=== PATIENT | female | born 1955 | race Caucasian/White ===

== ENCOUNTER 2017-08-31 00:31 | Inpatient (IN) | payer MEDICARE ==
[~2017-08-31] VITALS: Ht 162.6 cm; Wt 53.5 kg
--- NOTE | 2017-08-31 00:31 | NUR ---
Dr. Simon at bedside for MSE.
--- NOTE | 2017-08-31 00:56 | NUR ---
Pt out of ER for Xray and CT.
--- NOTE | 2017-08-31 01:48 | NUR ---
Passed report to Lorie SIMON MHU.
[2017-08-31] MEDS ORDERED: TEMAZEPAM 7.5 MG CAPSULE PO PRN (02:15)
[2017-08-31] MEDS ORDERED: MAGNESIUM HYDROXIDE 30 ML LIQUID UDC PO PRN (02:15)
[2017-08-31] MEDS ORDERED: MAG HYDROX/AL HYDROX/SIMETH 30 ML LIQUID UDC PO PRN (02:15)
[2017-08-31] MEDS ORDERED: ACETAMINOPHEN 325 MG TABLET PO PRN (02:15)
[2017-08-31 02:50] VITALS: BP 102/57
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
[2017-08-31] MEDS ORDERED: CLONAZEPAM 0.5 MG TABLET PO PRN (03:45)
--- NOTE | 2017-08-31 06:50 | NUR ---
PATIENT HAS BEEN ASLEEP SINCE SHE WAS ADMITTED INTO THE UNIT. (APPROX 6 HRS) UNABLE TO SIGN ADMISSION PAPERS OR PROVIDE AND INFORMATION OR HISTORY. WILL CONTINUE TO MONITOR.
[2017-08-31 07:30] VITALS: BP 128/57
[2017-08-31] MEDS ORDERED: risperiDONE 1 MG/ML UDC GT SCH (10:00)
[2017-08-31] MEDS: DIVALPROEX SPRINKLE 125 MG CAP.SPRINK PO SCH ×2 (12:20→20:43)
[2017-08-31] MEDS: risperiDONE 1 MG TABLET PO SCH ×2 (12:21→20:43)
[2017-08-31] MEDS: BENZTROPINE MESYLATE 0.5 MG TABLET PO SCH ×2 (12:21→17:53)
[2017-08-31 15:34] VITALS: BP 93/52
[2017-08-31 22:05] VITALS: BP 112/58
--- NOTE | 2017-09-01 00:55 | NUR ---
GPS/NSG Vital Signs entered at 2200 under short form taken originally at 1999.
--- NOTE | 2017-09-01 06:06 | NUR ---
GPS: REMAIN CALM AND COOPERATIVE WITH MEDICATIONS AND CARE. SLEPT 8 HRS THROUGH THE NIGHT. NO AGITATION NOTED AT THIS TIME. CONTINUE PLAN OF CARE.
[2017-09-01 06:48] LABS: BASOPHILS % (AUTO) 0.9 % (0.0-2.0); EOSINOPHILS # (AUTO) 0.1 K/uL (0.0-0.7); EOSINOPHILS % (AUTO) 1.5 % (0.0-7.0); HEMATOCRIT 37.7 % (31.2-41.9); HEMOGLOBIN 12.9 g/dL (10.9-14.3); LYMPHOCYTES % (AUTO) 33.7 % (20.5-51.5); MEAN CORPUSCULAR HEMOGLOBIN 30.7 uug (24.7-32.8); MEAN CORPUSCULAR HGB CONC 34 g/dL (32.3-35.6); MEAN CORPUSCULAR VOLUME 89.5 fL (75.5-95.3); MONOCYTES # (AUTO) 0.4 K/uL (2.0-10.0); MONOCYTES % (AUTO) 6.1 % (0.0-11.0); NEUTROPHILS # (AUTO) 3.4 K/uL (1.8-8.9); NEUTROPHILS % (AUTO) 57.8 % (38.5-71.5); PLATELET COUNT (AUTO) 307 K/uL (179-408); RED BLOOD CELL COUNT(AUTO) 4.21 MIL/uL (3.63-4.92); WHITE BLOOD COUNT (AUTO) 5.9 K/uL (3.8-11.8)
[2017-09-01 07:06] LABS: BILIRUBIN,TOTAL 0.2 mg/dL (0.2-1.0); CREATININE 0.7 mg/dL (0.6-1.3); MAGNESIUM 2.1 mg/dL (1.8-2.4); PHOSPHOROUS 4.6 mg/dL (2.5-4.9); POTASSIUM 4.7 mmol/L (3.5-5.1); TOTAL PROTEIN, SERUM 6.5 g/dL (6.4-8.2)
[2017-09-01 07:19] LABS: THYROID STIMULATING HORMONE 1.251 mIU/mL (0.358-3.740)
--- NOTE | 2017-09-01 07:30 | NUR ---
PT IS SLEEPING IN HER BED COMFORTABLY. NO S/S OF RESPIRATORY DISTRESS NOTED. ALL SAFETY NEEDS ARE MET. NO PAIN NOTED. WILL CONTINUE TO MONITOR.
[2017-09-01 07:48] VITALS: BP 97/63
[2017-09-01] MEDS: risperiDONE 1 MG TABLET PO SCH ×2 (08:42→20:32)
[2017-09-01] MEDS: DIVALPROEX SPRINKLE 125 MG CAP.SPRINK PO SCH ×2 (08:42→20:32)
[2017-09-01] MEDS: BENZTROPINE MESYLATE 0.5 MG TABLET PO SCH ×2 (08:42→17:18)
--- NOTE | 2017-09-01 10:19 | NUR ---
GPS.RN- PATIENT NOTIFIED OF 14DAY HOLD, QUESTIONS AND CONCERNS ADDRESSED, COURT NOTIFIED.
--- NOTE | 2017-09-01 14:17 | NUR ---
Initial DC Plan: Patient is currently homeless. Patient was unable to state where she would like to go upon discharge due to her disorganized mental status. SW will follow up with MD and patient to discuss most appropriate discharge plans. SW will form a safe and proper discharge.
[2017-09-01 15:07] LABS: *BILIRUBIN,URIN NEGATIVE (NEGATIVE); *BLOOD, URINE NEGATIVE (NEGATIVE); *CLARITY,URINE CLEAR (CLEAR); *COLOR,URINE YELLOW (YELLOW); *KETONES,URINE TRACE (NEGATIVE); *PROTEIN,URINE NEGATIVE (NEGATIVE); *UROBILINOGEN,URINE 0.2 E.U./dl (NORMAL); LEUKOCYTE ESTERASE ,URINE NEGATIVE (NEGATIVE); NITRITE, URINE NEGATIVE (NEGATIVE); PH,URINE 7.5 (5.0-8.0); UGLUCOSE NEGATIVE (NEGATIVE)
[2017-09-01 15:23] LABS: BACTERIA,URINE NONE SEEN /HPF (NONE SEEN); RBC,URINE 0-3 /HPF (0-3); SQUAMOUS EPITHELIAL CELL,UR FEW /HPF (NONE SEEN); WBC,URINE 0-3 /HPF (0-3)
[2017-09-01 17:01] VITALS: BP 107/71
[2017-09-01 20:20] VITALS: BP 110/68
--- NOTE | 2017-09-02 06:32 | NUR ---
Pt SLEPT WELL THROUGHOUT THE NIGHT, NO DISTRESS NOTED THIS MORNING, IN STABLE CONDITION. Pt CONTINUES TO SLEEP, RESTING COMFORTABLY.
[2017-09-02 07:30] VITALS: BP 107/67
[2017-09-02] MEDS: DIVALPROEX SPRINKLE 125 MG CAP.SPRINK PO SCH ×2 (09:09→20:39)
[2017-09-02] MEDS: risperiDONE 1 MG TABLET PO SCH ×2 (09:09→20:40)
[2017-09-02] MEDS: BENZTROPINE MESYLATE 0.5 MG TABLET PO SCH ×2 (09:10→17:28)
--- NOTE | 2017-09-02 09:15 | NUR ---
Pt report received. Pt assessed, no acute distress or SOB noted. Pt compliant with all routine medications. Pt cooperative with care, responds appropriately, even with flight of ideas evident. Interacts well with roommate. Pt able to make CFS. All comfort and safety needs met. Will continue to monitor.
[2017-09-02 15:31] VITALS: BP 100/70
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
[2017-09-02 20:29] VITALS: BP 106/66
[2017-09-03 07:30] VITALS: BP 93/63
[2017-09-03] MEDS: DIVALPROEX SPRINKLE 125 MG CAP.SPRINK PO SCH ×2 (08:52→20:05)
[2017-09-03] MEDS: risperiDONE 1 MG TABLET PO SCH ×2 (08:52→20:05)
[2017-09-03] MEDS: BENZTROPINE MESYLATE 0.5 MG TABLET PO SCH ×2 (08:52→16:14)
[2017-09-03 15:35] VITALS: BP 90/57
[2017-09-03 20:17] VITALS: BP 96/61
[2017-09-04 07:30] VITALS: BP 90/62
[2017-09-04] MEDS: risperiDONE 1 MG TABLET PO SCH ×2 (08:55→20:16)
[2017-09-04] MEDS: BENZTROPINE MESYLATE 0.5 MG TABLET PO SCH ×2 (08:55→17:59)
[2017-09-04] MEDS: DIVALPROEX SPRINKLE 125 MG CAP.SPRINK PO SCH ×2 (08:56→20:16)
[2017-09-04 15:32] VITALS: BP 92/57
[2017-09-04 20:08] VITALS: BP 103/55
[2017-09-05 07:30] VITALS: BP 107/62
[2017-09-05] MEDS: BENZTROPINE MESYLATE 0.5 MG TABLET PO SCH ×2 (08:07→16:22)
[2017-09-05] MEDS: risperiDONE 1 MG TABLET PO SCH ×2 (08:07→20:41)
[2017-09-05] MEDS: DIVALPROEX SPRINKLE 125 MG CAP.SPRINK PO SCH ×2 (08:07→20:41)
[2017-09-05 15:32] VITALS: BP 92/66
--- NOTE | 2017-09-05 19:45 | NUR ---
RECEIVED PATIENT IN HER ROOM. SHE IN NOTED A/O X 2. PLEASANT AND COOPERATIVE. SHE IS ABLE TO AMBULATE WITH STEADY GAIT AND ABLE TO MAKE HER NEEDS KNOWN. SHE IS NOTED CALM PLEASANT AND COOPERATIVE. WITHDRAWN MAINLY TO HER ROOM, HYPERVERBAL. FAIR INSIGHT NOTED. EMPHASIZED SAFETY, BED AT LOWEST POSITION WITH WHEELS LOCKED AND SIDE RAILS UP X 2. FREQUENT HEAD CHECKS. WILL CONTINUE TO MONITOR CLOSELY.
[2017-09-05 21:00] VITALS: BP 90/56
--- NOTE | 2017-09-06 06:26 | NUR ---
PATIENT SLEPT FOR APPROX 9 HRS THROUGH THE NIGHT. SHE CONTINUE COMPLIANT WITH MEDICATION DIET AND PLAN OF CARE.
[2017-09-06 08:00] VITALS: BP 107/68
[2017-09-06] MEDS: risperiDONE 1 MG TABLET PO SCH (08:44)
[2017-09-06] MEDS: BENZTROPINE MESYLATE 0.5 MG TABLET PO SCH ×2 (08:45→17:01)
[2017-09-06] MEDS: DIVALPROEX SPRINKLE 125 MG CAP.SPRINK PO SCH ×2 (08:45→20:49)
--- NOTE | 2017-09-06 11:11 | NUR ---
Discharge Planning Note: SW attempted to discuss discharge planning with patient, however, patient was too disorganized and tangential to provide meaningful answers to questions. Patient is unable to contract for safety at this time or provide a viable discharge plan. Patient has been accepted at [facility] [[phone]]. SW will continue to follow up with patient to discuss discharge planning.
[2017-09-06 16:00] VITALS: BP 90/62
--- NOTE | 2017-09-06 19:50 | NUR ---
RECEIVED PATIENT IN HER ROOM. SHE IN NOTED A/O X 2. PLEASANT AND COOPERATIVE. SHE IS ABLE TO AMBULATE WITH STEADY GAIT AND ABLE TO MAKE HER NEEDS KNOWN. SHE IS NOTED CALM PLEASANT AND COOPERATIVE. WITHDRAWN MAINLY TO HER ROOM, HYPERVERBAL UPON INTERVIEW. FAIR INSIGHT NOTED. EMPHASIZED SAFETY, BED AT LOWEST POSITION WITH WHEELS LOCKED AND SIDE RAILS UP X 2. FREQUENT HEAD CHECKS. WILL CONTINUE TO MONITOR CLOSELY.
[2017-09-06] MEDS: risperiDONE 2 MG TABLET PO SCH (20:48)
--- NOTE | 2017-09-06 22:13 | NUR ---
PATIENT CAME OUT OF HER ROOM, UPSET, AND YELLING, SHE STATED, "WHY THERE IS SO MUCH NOISE IN MY ROOM?" "I CAN'T SLEEP, IS THERE ANOTHER ROOM THAT I CAN SLEEP IN?" "YOU ALL DON'T HAVE RESPECT FOR ME". ATTEMPTED TO REDIRECTED PT AND EXPLAINED THAT SHE (EVS STAFF) WAS DONE CLEANING HER ROOM. HOWEVER, SHE WENT INTO THE DAY ROOM. WILL CONTINUE TO MONITOR.
--- NOTE | 2017-09-06 23:50 | NUR ---
PATIENT WHEN BACK TO HER BED, APPEARS CALM AT THIS TIME. WILL CONTINUE TO MONITOR.
[2017-09-07 08:00] VITALS: BP 102/55
[2017-09-07] MEDS: BENZTROPINE MESYLATE 0.5 MG TABLET PO SCH ×2 (08:28→17:36)
[2017-09-07] MEDS: DIVALPROEX SPRINKLE 125 MG CAP.SPRINK PO SCH ×2 (08:28→20:22)
[2017-09-07] MEDS: risperiDONE 1 MG TABLET PO SCH (08:29)
[2017-09-07 16:00] VITALS: BP 92/52
[2017-09-07] MEDS: risperiDONE 2 MG TABLET PO SCH (20:22)
[2017-09-07 20:32] VITALS: BP 103/57
--- NOTE | 2017-09-08 05:43 | NUR ---
NSG/GPS Patient first observed awake in room, alert oriented times two, patient however is disorganized and tangental, unable to engage in a coherent conversation, Compliant with medication, asking questions related to medication. Patient slept a total of eight hours. Continue to follow plan of care including monitor as well as provide a safe environment.
[2017-09-08 07:30] VITALS: BP 97/56
[2017-09-08] MEDS: risperiDONE 1 MG TABLET PO SCH (08:21)
[2017-09-08] MEDS: BENZTROPINE MESYLATE 0.5 MG TABLET PO SCH ×2 (08:21→17:22)
[2017-09-08] MEDS: DIVALPROEX SPRINKLE 125 MG CAP.SPRINK PO SCH ×2 (08:21→20:10)
[2017-09-08 15:36] VITALS: BP 119/60
[2017-09-08] MEDS: risperiDONE 2 MG TABLET PO SCH (20:10)
[2017-09-08 21:12] VITALS: BP 107/63
[2017-09-09 07:30] VITALS: BP 103/50
[2017-09-09] MEDS: risperiDONE 1 MG TABLET PO SCH (08:42)
[2017-09-09] MEDS: BENZTROPINE MESYLATE 0.5 MG TABLET PO SCH ×2 (08:42→16:47)
[2017-09-09] MEDS: DIVALPROEX SPRINKLE 125 MG CAP.SPRINK PO SCH ×3 (08:42→16:47)
[2017-09-09 16:56] VITALS: BP 97/65
[2017-09-09 20:00] VITALS: BP 99/58
[2017-09-09] MEDS: risperiDONE 2 MG TABLET PO SCH (20:48)
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
[2017-09-10 07:30] VITALS: BP 93/62
[2017-09-10] MEDS: risperiDONE 1 MG TABLET PO SCH (08:17)
[2017-09-10] MEDS: DIVALPROEX SPRINKLE 125 MG CAP.SPRINK PO SCH ×3 (08:17→16:49)
[2017-09-10] MEDS: BENZTROPINE MESYLATE 0.5 MG TABLET PO SCH ×2 (08:17→16:49)
[2017-09-10 15:18] VITALS: BP 104/55
--- NOTE | 2017-09-10 17:32 | NUR ---
Pt without significant change in condition during shift. Pt is compliant with medications and plan of care. Noted attending group activities in the dayroom and interacting with peers and recreational therapist. Pt noted with pleasant attitude. No yelling or screaming at other patients. Able to provide self-care with minimal prompting. Will continue to monitor.
[2017-09-10 20:00] VITALS: BP 90/54
[2017-09-10] MEDS: risperiDONE 2 MG TABLET PO SCH (21:00)
--- NOTE | 2017-09-10 21:27 | NUR ---
DECREASED BLOOD PRESSURE THIS EVENING OF 90/54, NURSE GAVE A SANDWICH, JUICE, AND WATER TO Pt, ELEVATED FEET ON A CHAIR. RECHECKED BLOOD PRESSURE AFTER 1 HOUR OF FINISHING SNACKS, BLOOD PRESSURE WAS 94/56. Pt IS ASYMPTOMATIC, SKIN COLOR WNL, OTHER VITAL SIGNS ARE WNL, Pt DENIES PAIN, DISCOMFORT, DIZZINESS, LIGHTHEADEDNESS, AND STATED, "I FEEL FINE." WILL HOLD SCHEDULED RISPERDAL 2MG PO THIS EVENING. WILL CONTINUE TO MONITOR Pt CLOSELY FOR SAFETY.
--- NOTE | 2017-09-11 04:00 | NUR ---
Pt WOKE UP AND GOT OUT OF ROOM TO GO TO ACTIVITY ROOM. WAS NOTED RESTLESS SHE WALKED DOWN THE HALLWAY, INFORMED BY NURSE THAT THE ACTIVITY ROOM IS CLOSED SINCE IT IS TOO EARLY. OFFERED ANTI-ANXIETY MEDICATION BY NURSE BUT Pt REFUSED AND STATED, "NO, THANK YOU. I'LL JUST GO BACK TO BED AND TRY TO SLEEP." Pt WAS PLEASANT AND COOPERATIVE, NO AGGRESSIVE BEHAVIOR NOTED. Pt NOW BACK IN BED SLEEPING. NO OTHER INTERVENTIONS NEEDED.
[2017-09-11 07:30] VITALS: BP 96/60
[2017-09-11] MEDS: DIVALPROEX SPRINKLE 125 MG CAP.SPRINK PO SCH ×2 (08:38→13:15)
[2017-09-11] MEDS: BENZTROPINE MESYLATE 0.5 MG TABLET PO SCH (08:38)
[2017-09-11] MEDS: risperiDONE 1 MG TABLET PO SCH (08:38)
--- NOTE | 2017-09-11 11:10 | NUR ---
Discharge Note: Patient will be discharged to [facility] [[address], [place] [address]; [phone]] via ambulance. Spoke with Lc at the facility who states they are ready to accept the patient today. Patient is alert and oriented x3. Patient is aware and agreeable with discharge plans. Patient will follow-up at the facility with Dr. Rai (Administrative Executive) and Dr. Painting (Psychiatrist).
--- NOTE | 2017-09-11 14:30 | NUR ---
GPS: Nursing Notes: Discharge Notes: Patient is awake and responding to her name, cooperative with nursing care, compliant with her medications, following staff directions, denies any SI/HI, denies any AH/VH, denies any pain or discomfort, denies any SOB, discharge to [facility] at [address] [place] [address] . Patient will follow-up at the facility with Dr. Rai (Auto Transmission Technician) and Dr. Painting (Psychiatrist) for aftercare at the facility, report given to Jose Alfredo RN pharmaceutical compounding supervisor, took all her belongings with her, transported to facility via ambulance.
== END 2017-09-11 14:30 | DRG 885 ==
LOC: ER 00:37 → GPS 01:50
PROVIDERS: ADMIT Psychiatry & Neurology Psychiatry; ATTEND Nurse Practitioner Acute Care
DX: F25.9 Schizoaffective disorder, unspecified (principal); E44.0 Moderate protein-calorie malnutrition; Z59.0 Homelessness; M54.12 Radiculopathy, cervical region; F43.10 Post-traumatic stress disorder, unspecified; Z68.20 Body mass index [BMI] 20.0-20.9, adult
CPT/HCPCS: 36415; 70450; 71045; 80164; 83735; 84100; 84443; 85025; 87086; 93005; A4663

== ENCOUNTER 2018-01-30 20:08 | Inpatient (IN) | payer MEDICARE ==
[~2018-01-30] VITALS: Ht 162.6 cm; Wt 56.2 kg
[2018-01-30 21:09] VITALS: BP 128/81
[2018-01-30] MEDS ORDERED: MAG HYDROX/AL HYDROX/SIMETH 30 ML LIQUID UDC PO PRN (21:15)
[2018-01-30] MEDS ORDERED: MAGNESIUM HYDROXIDE 30 ML LIQUID UDC PO PRN (21:15)
[2018-01-30] MEDS ORDERED: ACETAMINOPHEN 325 MG TABLET PO PRN (21:15)
[2018-01-31 07:30] VITALS: BP 128/75
[2018-01-31 16:05] VITALS: BP 124/71
[2018-01-31] MEDS: DIVALPROEX 250 MG TABLET.DR PO SCH (17:59)
[2018-01-31 19:30] VITALS: BP 117/82
[2018-01-31] MEDS: risperiDONE 1 MG TABLET PO SCH (21:00)
[2018-02-01 07:18] LABS: BASOPHILS % (AUTO) 0.5 % (0.0-2.0); EOSINOPHILS # (AUTO) 0.1 K/uL (0.0-0.7); EOSINOPHILS % (AUTO) 0.9 % (0.0-7.0); HEMATOCRIT 39.1 % (31.2-41.9); HEMOGLOBIN 13.2 g/dL (10.9-14.3); LYMPHOCYTES # (AUTO) 1.8 K/uL (20.0-40.0); LYMPHOCYTES % (AUTO) 23.6 % (20.5-51.5); MEAN CORPUSCULAR HEMOGLOBIN 30.3 uug (24.7-32.8); MEAN CORPUSCULAR HGB CONC 34 g/dL (32.3-35.6); MEAN CORPUSCULAR VOLUME 89.6 fL (75.5-95.3); MONOCYTES # (AUTO) 0.6 K/uL (2.0-10.0); MONOCYTES % (AUTO) 7.5 % (0.0-11.0); NEUTROPHILS # (AUTO) 5.1 K/uL (1.8-8.9); NEUTROPHILS % (AUTO) 67.5 % (38.5-71.5); PLATELET COUNT (AUTO) 269 K/uL (179-408); RED BLOOD CELL COUNT(AUTO) 4.37 MIL/uL (3.63-4.92); WHITE BLOOD COUNT (AUTO) 7.6 K/uL (3.8-11.8)
[2018-02-01 07:30] VITALS: BP 118/72
[2018-02-01 07:49] LABS: BILIRUBIN,TOTAL 0.3 mg/dL (0.2-1.0); CREATININE 0.6 mg/dL (0.6-1.3); MAGNESIUM 1.9 mg/dL (1.8-2.4); PHOSPHOROUS 5.1 mg/dL (2.5-4.9); POTASSIUM 4.3 mmol/L (3.5-5.1); TOTAL PROTEIN, SERUM 6.7 g/dL (6.4-8.2)
[2018-02-01 07:55] LABS: THYROID STIMULATING HORMONE 1.251 mIU/mL (0.358-3.740)
[2018-02-01] MEDS: DIVALPROEX 250 MG TABLET.DR PO SCH ×3 (08:09→16:52)
[2018-02-01] MEDS: risperiDONE 1 MG TABLET PO SCH ×2 (08:09→21:02)
[2018-02-01 16:11] VITALS: BP 117/71
[2018-02-01 20:59] VITALS: BP 118/63
[2018-02-01] MEDS: ZOLPIDEM 5 MG TABLET PO PRN (22:28)
[2018-02-02 07:30] VITALS: BP 132/65
[2018-02-02] MEDS: DIVALPROEX 250 MG TABLET.DR PO SCH ×3 (08:10→16:13)
[2018-02-02] MEDS: risperiDONE 1 MG TABLET PO SCH ×2 (08:10→20:10)
[2018-02-02] MEDS: LORAZEPAM 0.5 MG TABLET PO PRN (11:11)
[2018-02-02 16:00] VITALS: BP 102/66
[2018-02-02 20:40] VITALS: BP 107/61
[2018-02-03 07:30] VITALS: BP 110/77
[2018-02-03] MEDS: risperiDONE 1 MG TABLET PO SCH ×2 (08:33→20:43)
[2018-02-03] MEDS: DIVALPROEX 250 MG TABLET.DR PO SCH ×2 (08:33→12:43)
[2018-02-03 16:14] VITALS: BP 94/60
[2018-02-03] MEDS: LORAZEPAM 0.5 MG TABLET PO PRN (16:57)
[2018-02-03] MEDS ORDERED: DIVALPROEX 250 MG TABLET.DR PO SCH (17:00)
[2018-02-03 20:50] VITALS: BP 107/66
[2018-02-04 07:30] VITALS: BP 121/67
[2018-02-04] MEDS: risperiDONE 1 MG TABLET PO SCH ×2 (09:09→20:24)
[2018-02-04 14:50] LABS: *BILIRUBIN,URIN NEGATIVE (NEGATIVE); *BLOOD, URINE NEGATIVE (NEGATIVE); *CLARITY,URINE SLIGHTLY CLOUDY (CLEAR); *COLOR,URINE YELLOW (YELLOW); *KETONES,URINE NEGATIVE (NEGATIVE); *PROTEIN,URINE NEGATIVE (NEGATIVE); *UROBILINOGEN,URINE 0.2 E.U./dl (NORMAL); LEUKOCYTE ESTERASE ,URINE NEGATIVE (NEGATIVE); NITRITE, URINE NEGATIVE (NEGATIVE); PH,URINE 6.5 (5.0-8.0); UGLUCOSE NEGATIVE (NEGATIVE)
[2018-02-04 14:56] LABS: BACTERIA,URINE NONE SEEN /HPF (NONE SEEN); RBC,URINE 0-3 /HPF (0-3); SQUAMOUS EPITHELIAL CELL,UR FEW /HPF (NONE SEEN); WBC,URINE 0-3 /HPF (0-3)
[2018-02-04 16:00] VITALS: BP 103/98
[2018-02-04] MEDS: DIVALPROEX 500 MG TABLET.DR PO SCH (17:05)
[2018-02-04 20:00] VITALS: BP 108/67
[2018-02-05 08:00] VITALS: BP 108/75
[2018-02-05] MEDS: risperiDONE 1 MG TABLET PO SCH ×2 (09:57→20:10)
[2018-02-05] MEDS: DIVALPROEX 500 MG TABLET.DR PO SCH ×3 (09:57→20:10)
[2018-02-05 16:38] VITALS: BP 107/56
[2018-02-05 20:00] VITALS: BP 100/62
[2018-02-06 07:30] VITALS: BP 92/63
[2018-02-06] MEDS: DIVALPROEX 500 MG TABLET.DR PO SCH ×2 (08:29→20:44)
[2018-02-06] MEDS: risperiDONE 1 MG TABLET PO SCH ×2 (08:30→20:44)
[2018-02-06] MEDS: LORAZEPAM 0.5 MG TABLET PO PRN (13:56)
[2018-02-06 16:36] VITALS: BP 98/59
[2018-02-06 20:00] VITALS: BP 111/64
[2018-02-06 20:28] VITALS: BP 111/64
[2018-02-07 07:39] LABS: BASOPHILS % (AUTO) 0.6 % (0.0-2.0); EOSINOPHILS # (AUTO) 0.1 K/uL (0.0-0.7); EOSINOPHILS % (AUTO) 1.7 % (0.0-7.0); HEMATOCRIT 38.6 % (31.2-41.9); HEMOGLOBIN 13.2 g/dL (10.9-14.3); LYMPHOCYTES # (AUTO) 1.6 K/uL (20.0-40.0); LYMPHOCYTES % (AUTO) 29.5 % (20.5-51.5); MEAN CORPUSCULAR HEMOGLOBIN 30.5 uug (24.7-32.8); MEAN CORPUSCULAR HGB CONC 34 g/dL (32.3-35.6); MEAN CORPUSCULAR VOLUME 89.3 fL (75.5-95.3); MONOCYTES # (AUTO) 0.4 K/uL (2.0-10.0); MONOCYTES % (AUTO) 7.8 % (0.0-11.0); NEUTROPHILS # (AUTO) 3.2 K/uL (1.8-8.9); NEUTROPHILS % (AUTO) 60.4 % (38.5-71.5); PLATELET COUNT (AUTO) 293 K/uL (179-408); RED BLOOD CELL COUNT(AUTO) 4.32 MIL/uL (3.63-4.92); WHITE BLOOD COUNT (AUTO) 5.4 K/uL (3.8-11.8)
[2018-02-07 08:00] LABS: BILIRUBIN,TOTAL 0.2 mg/dL (0.2-1.0); CREATININE 0.6 mg/dL (0.6-1.3); MAGNESIUM 2.1 mg/dL (1.8-2.4); PHOSPHOROUS 4.5 mg/dL (2.5-4.9); POTASSIUM 5.2 mmol/L (3.5-5.1); TOTAL PROTEIN, SERUM 6.9 g/dL (6.4-8.2)
[2018-02-07 08:52] VITALS: BP 110/70
[2018-02-07 08:53] VITALS: BP 105/66
[2018-02-07] MEDS: risperiDONE 1 MG TABLET PO SCH ×3 (08:54→21:01)
[2018-02-07] MEDS: DIVALPROEX 500 MG TABLET.DR PO SCH ×3 (08:58→21:01)
[2018-02-07] MEDS: LORAZEPAM 0.5 MG TABLET PO PRN (10:38)
[2018-02-07 15:40] VITALS: BP 101/61
[2018-02-07 21:00] VITALS: BP 108/66
[2018-02-08 07:30] VITALS: BP 103/69
[2018-02-08] MEDS: risperiDONE 1 MG TABLET PO SCH (08:19)
[2018-02-08] MEDS: DIVALPROEX 500 MG TABLET.DR PO SCH ×2 (08:19→20:03)
[2018-02-08] MEDS: LORAZEPAM 0.5 MG TABLET PO PRN (10:59)
[2018-02-08 12:04] LABS: CREATININE 0.8 mg/dL (0.6-1.3); POTASSIUM 4.4 mmol/L (3.5-5.1)
[2018-02-08 16:00] VITALS: BP 100/62
[2018-02-08] MEDS: OLANZAPINE ZYDIS 5 MG TAB.RAPDIS PO SCH (20:02)
[2018-02-08 21:51] VITALS: BP 108/66
[2018-02-09 07:30] VITALS: BP 124/71
[2018-02-09] MEDS: DIVALPROEX 500 MG TABLET.DR PO SCH ×2 (09:47→20:24)
[2018-02-09 16:10] VITALS: BP 105/65
[2018-02-09 20:08] VITALS: BP 101/59
[2018-02-09] MEDS: OLANZAPINE ZYDIS 5 MG TAB.RAPDIS PO SCH (20:24)
[2018-02-10 07:30] VITALS: BP 118/71
[2018-02-10] MEDS: LORAZEPAM 0.5 MG TABLET PO PRN ×2 (07:50→22:37)
[2018-02-10] MEDS: DIVALPROEX 500 MG TABLET.DR PO SCH ×2 (08:39→22:36)
[2018-02-10] MEDS: OLANZAPINE ZYDIS 5 MG TAB.RAPDIS PO SCH (22:35)
[2018-02-11 08:00] VITALS: BP 102/64
[2018-02-11] MEDS: DIVALPROEX 500 MG TABLET.DR PO SCH ×2 (08:34→20:21)
[2018-02-11 16:00] VITALS: BP 102/68
[2018-02-11 20:00] VITALS: BP 105/71
[2018-02-11] MEDS: OLANZAPINE ZYDIS 5 MG TAB.RAPDIS PO SCH (20:20)
[2018-02-11] MEDS: ZOLPIDEM 5 MG TABLET PO PRN (20:21)
[2018-02-11] MEDS ORDERED: OLANZAPINE 10 MG VIAL IM STA (20:51)
[2018-02-12] MEDS: LORAZEPAM 0.5 MG TABLET PO PRN ×3 (06:14→16:49)
[2018-02-12 07:27] LABS: BASOPHILS % (AUTO) 0.8 % (0.0-2.0); EOSINOPHILS # (AUTO) 0.1 K/uL (0.0-0.7); EOSINOPHILS % (AUTO) 1.7 % (0.0-7.0); HEMATOCRIT 40.8 % (31.2-41.9); LYMPHOCYTES # (AUTO) 2.1 K/uL (20.0-40.0); LYMPHOCYTES % (AUTO) 42.3 % (20.5-51.5); MEAN CORPUSCULAR HEMOGLOBIN 31.2 uug (24.7-32.8); MEAN CORPUSCULAR HGB CONC 34 g/dL (32.3-35.6); MEAN CORPUSCULAR VOLUME 91.1 fL (75.5-95.3); MONOCYTES # (AUTO) 0.4 K/uL (2.0-10.0); MONOCYTES % (AUTO) 8.2 % (0.0-11.0); NEUTROPHILS # (AUTO) 2.3 K/uL (1.8-8.9); PLATELET COUNT (AUTO) 282 K/uL (179-408); RED BLOOD CELL COUNT(AUTO) 4.48 MIL/uL (3.63-4.92); WHITE BLOOD COUNT (AUTO) 4.9 K/uL (3.8-11.8)
[2018-02-12 07:30] VITALS: BP 124/79
[2018-02-12 07:59] LABS: CREATININE 0.7 mg/dL (0.6-1.3); POTASSIUM 5.7 mmol/L (3.5-5.1)
[2018-02-12] MEDS: DIVALPROEX 500 MG TABLET.DR PO SCH ×2 (08:30→21:15)
[2018-02-12] MEDS ORDERED: SODIUM POLYSTYRENE SULFONATE 15 G/60 ML LIQUID UDC PO ONE (11:30)
[2018-02-12 16:07] LABS: PHOSPHOROUS 5.6 mg/dL (2.5-4.9); POTASSIUM 4.6 mmol/L (3.5-5.1)
[2018-02-12 17:02] VITALS: BP 98/62
[2018-02-12 20:56] VITALS: BP 100/68
[2018-02-12] MEDS ORDERED: OLANZAPINE ZYDIS 5 MG TAB.RAPDIS PO SCH (21:00)
[2018-02-13 07:30] VITALS: BP 117/63
[2018-02-13] MEDS: DIVALPROEX 500 MG TABLET.DR PO SCH (08:18)
== END 2018-02-13 12:00 | disposition home or self-care (01) | DRG 885 ==
LOC: ER 20:08 → GPS 20:53
PROVIDERS: ADMIT Psychiatry & Neurology Psychiatry; ATTEND Registered Nurse
DX: F25.9 Schizoaffective disorder, unspecified (principal); E44.1 Mild protein-calorie malnutrition; Z59.0 Homelessness; M54.12 Radiculopathy, cervical region; Z91.19 Patient's noncompliance with other medical treatment and regimen; F43.12 Post-traumatic stress disorder, chronic; E87.5 Hyperkalemia; E78.5 Hyperlipidemia, unspecified; Z68.21 Body mass index [BMI] 21.0-21.9, adult
CPT/HCPCS: 36415; 80164; 83735; 84100; 84132; 84443; 85025; 87086; A4663; J2358; J3490

== ENCOUNTER 2022-04-26 23:27 | Inpatient (IN) | payer MEDICARE, OTHER ==
[~2022-04-26] VITALS: Ht 160 cm; Wt 60.3 kg
--- NOTE | 2022-04-26 23:35 | NUR ---
Dr. Parsons evaluated patient at bedside. MSE in progress.
[2022-04-26] MEDS ORDERED: OLANZAPINE 10 MG VIAL IM ONE (23:45)
--- NOTE | 2022-04-27 00:10 | NUR ---
Patient walked into bathroom independently.
[2022-04-27 00:17] LABS: CREATINE KINASE, TOTAL 217 U/L (26-192)
--- NOTE | 2022-04-27 00:17 | NUR ---
Urine sample sent to lab
[2022-04-27 00:26] LABS: ACETAMINOPHEN < 2.0 ug/mL (10-30)
[2022-04-27] MEDS ORDERED: OLANZAPINE 10 MG VIAL IM ONE (00:27)
[2022-04-27 00:38] LABS: *AMPHETAMINE, URINE NEGATIVE (NEGATIVE); *CANNABINOID, URINE NEGATIVE (NEGATIVE); *COCCAINE, URINE NEGATIVE (NEGATIVE); *PHENCYCLIDINE SCREEN,URINE NEGATIVE (NEGATIVE)
[2022-04-27] MEDS ORDERED: RISP2TAB5 PO (02:34)
--- NOTE | 2022-04-27 02:52 | NUR ---
Called Hermila Galvez for notification of patients admission. Unable to reach, left a voicemail.
--- NOTE | 2022-04-27 03:00 | NUR ---
Currently no MHU beds avaliable. Patient holding in the ER.
--- NOTE | 2022-04-27 06:11 | NUR ---
Report given to Johnie at [facility]. Patient will be admitted to [facility]
--- NOTE | 2022-04-27 07:07 | NUR ---
Report given to Christiana SIMON
--- NOTE | 2022-04-27 07:17 | NUR ---
Patient taken to MHU in stable condition with personal belongings via wheelchair. Patient in stable condition, no signs of distress.
[2022-04-27 07:30] VITALS: BP 128/71
[2022-04-27] MEDS ORDERED: MAGNESIUM HYDROXIDE 30 ML LIQUID UDC PO PRN (07:30)
[2022-04-27] MEDS ORDERED: TEMAZEPAM 7.5 MG CAPSULE PO PRN (07:30)
[2022-04-27] MEDS ORDERED: ACETAMINOPHEN 325 MG TABLET PO PRN (07:30)
[2022-04-27] MEDS ORDERED: MAG HYDROX/AL HYDROX/SIMETH 30 ML LIQUID UDC PO PRN (07:30)
--- NOTE | 2022-04-27 08:00 | NUR ---
Patient arrived on the unit at the change of shift. Patient is on 5150 hold. According to the hold, patient was wondering on the streets of [place], agitated, non-sensical, and disturbing to the public. Upon face to face evaluation, patient is disheveled with poor hygiene, irritable and non-sensical. Patient is rambling about various subjects including being an [place] and not being treated justly. pt is tangential and a very poor historian. Pt does not know why she is here and not able to provide any plan of care. Patient refused to participate in the interview, interrupting the staff and going on about her rights as an [place] citizen. Pt was offered shower, but she refused. Pt was provided with patient rights booklet, her advisement of the hold. Pt is not able to comprehend the admission process or meaningfully participate in the plan of care.
[2022-04-27] MEDS: LORAZEPAM 1 MG TABLET PO PRN ×2 (11:11→20:56)
[2022-04-27] MEDS: DIVALPROEX 250 MG TABLET.DR PO SCH ×2 (13:37→17:20)
[2022-04-27 16:00] VITALS: BP 115/57
--- NOTE | 2022-04-27 16:27 | NUR ---
FRANCK Initial Discharge Note: Pt is currently homeless per 5150 hold. FRANCK will contact pt's person to notify, Hermila ([phone]) regarding pt's discharge plan. FRANCK is unable to ascertain any information from the pt at this time. FRANCK will continue to work with pt, Hermila and to ensure a safe and proper discharge plan.
[2022-04-27] MEDS: OLANZAPINE ZYDIS 5 MG TAB.RAPDIS PO SCH (17:20)
--- NOTE | 2022-04-27 19:18 | NUR ---
pt was agitated upon arrival, non-sensical, making various vague accusations about multiple people, compaining about injustice in the country and poor governance, and liars in [facility]. Pt was grandious, hyperverbal, rambling and agitated. Pt accepted PRN medication for agitation and anxiety. Pt was able to fall asleep after. Pt was resting in bed since. NO distress was noted.
[2022-04-27 21:19] VITALS: BP 102/57
[2022-04-28 07:30] VITALS: BP 138/67
[2022-04-28 08:13] LABS: HEMATOCRIT 40.2 % (31.2-41.9); MEAN CORPUSCULAR HEMOGLOBIN 29.8 uug (24.7-32.8); MEAN CORPUSCULAR VOLUME 91.1 fL (75.5-95.3); PLATELET COUNT (AUTO) 317 K/uL (179-408)
[2022-04-28 08:38] LABS: THYROID STIMULATING HORMONE 0.528 mIU/mL (0.358-3.740)
[2022-04-28 09:07] LABS: BILIRUBIN,TOTAL 0.3 mg/dL (0.2-1.0); CREATININE 0.7 mg/dL (0.6-1.3); POTASSIUM 4.2 mmol/L (3.5-5.1); TOTAL PROTEIN, SERUM 7.7 g/dL (6.4-8.2)
[2022-04-28] MEDS: OLANZAPINE ZYDIS 5 MG TAB.RAPDIS PO SCH ×2 (09:15→17:40)
[2022-04-28] MEDS: DIVALPROEX 250 MG TABLET.DR PO SCH ×3 (09:15→17:40)
[2022-04-28] MEDS: LORAZEPAM 1 MG TABLET PO PRN ×2 (09:15→20:24)
[2022-04-28 16:00] VITALS: BP 139/119
[2022-04-28 20:15] VITALS: BP 107/62
[2022-04-29 07:30] VITALS: BP 108/63
[2022-04-29] MEDS: DIVALPROEX 250 MG TABLET.DR PO SCH ×3 (08:42→17:42)
[2022-04-29] MEDS: OLANZAPINE ZYDIS 5 MG TAB.RAPDIS PO SCH ×2 (08:48→17:43)
[2022-04-29] MEDS: LORAZEPAM 1 MG TABLET PO PRN ×2 (08:55→19:37)
[2022-04-29] MEDS ORDERED: OLANZAPINE 10 MG VIAL IM ONE (09:00)
--- NOTE | 2022-04-29 09:20 | NUR ---
Gps/Feather Cutting Machine Feeder- Patient extremely agitated , yelling, screaming, disruptive, difficulty redirecting patient , Dr Jerry, noted patient behavior, order received Zyprexa 10 mg IM, carried out order, administered left deltoid, explained to patient reason , rationale of med. ,
[2022-04-29 16:00] VITALS: BP 138/66
--- NOTE | 2022-04-29 16:10 | NUR ---
Gps/Program Attendant- Patient asleep at this time, in no sign of any distress
--- NOTE | 2022-04-29 19:40 | NUR ---
GPS: During initial rounds,noted pt.to be hyper-verbal,loud, rambling,disorganized,agitated and starting to be disruptive on the unit. Denies AH/VH when asked. Poor insight to her mental illness and present situation. Re-directed at this time and was offered an Ativan 1mg PO for increased anxiety/agitation. Will monitor effectiveness and for further escalation of behavior. Safe environment provided.
[2022-04-29 20:10] VITALS: BP 135/74
--- NOTE | 2022-04-29 20:15 | NUR ---
GPS: Pt.on her bed resting at this time. No further episodes of agitation noted. Safety emphasized. Re-directed prn.
--- NOTE | 2022-04-30 06:35 | NUR ---
GPS: Pt.slept 9 hrs.last night. Remains disorganized,non-sensical but calm at this time. Re-directed prn. Safe environment provided. Will continue to monitor.
[2022-04-30 07:57] VITALS: BP 109/71
[2022-04-30] MEDS: DIVALPROEX 250 MG TABLET.DR PO SCH ×3 (08:13→16:26)
[2022-04-30] MEDS: LORAZEPAM 1 MG TABLET PO PRN ×2 (08:13→13:35)
[2022-04-30] MEDS: OLANZAPINE ZYDIS 5 MG TAB.RAPDIS PO SCH ×2 (08:13→16:28)
--- NOTE | 2022-04-30 14:17 | NUR ---
GPS: Nursing Notes: Thought Disorder: Patient is awake and responding to her name, impaired judgment, poor impulse control, responding to internal stimuli by coming out of her room, telling everyone "The nurses are lying.. I don't have dementia..", redirected during shift, believes that she is leaving today, asking for her belongings, but able to be redirected, unable to formulate a viable plan for self care, episode of pulling out the decoration from the wall, continue to monitor for safety, continue with treatment plan.
[2022-04-30 16:20] VITALS: BP 106/50
[2022-04-30 20:00] VITALS: BP 110/65
--- NOTE | 2022-04-30 21:30 | NUR ---
Received patient in her room in bed. she is noted sleeping but easily arousable, patient is calm upon approached. she is a poor historian. she is noted with impaired insight and judgment as to the reason for her admission to MHU. patient was given PO fluids and snacks. her V/S are stable. she is reassured for her safety. safety and fall precautions are in place. will continue to monitor.
[2022-05-01 08:14] VITALS: BP 99/54
[2022-05-01] MEDS: LORAZEPAM 1 MG TABLET PO PRN ×2 (08:23→12:25)
[2022-05-01] MEDS: OLANZAPINE ZYDIS 5 MG TAB.RAPDIS PO SCH ×2 (08:44→16:11)
[2022-05-01] MEDS: FERROUS SULFATE 325 MG TABEC PO SCH (08:44)
[2022-05-01] MEDS: DIVALPROEX 250 MG TABLET.DR PO SCH ×3 (08:44→16:11)
--- NOTE | 2022-05-01 14:24 | NUR ---
GPS: Nursing Notes: Thought Disorder: Patient is awake and responding to her name, impaired judgment, labile, unpredictable behavior, episode of pulling out the decorations from the wall, believes that she is leaving today, resistant with nursing care, A/Ox2, internally preoccupied, gets easily irritable when redirected, poor anger management, unable to formulate a viable plan for self care, continue to monitor for safety, continue with treatment plan.
[2022-05-01 16:12] VITALS: BP 104/56
[2022-05-01 20:09] VITALS: BP 106/52
--- NOTE | 2022-05-01 21:30 | NUR ---
Received patient in her room in bed. she is noted sleeping but easily arousable, patient noted A/O x 2. she is a poor historian. she is isolative and withdrawn. she continue with delusional thinking. she appears to be responding to internal stimuli and having auditory and visual hallucinations. she stated, "There is a man in my room". her speech is disorganized. She is noted with impaired insight and judgment as to the reason for her admission to MHU. patient refused PO fluids and snacks. her V/S are stable. she is reassured for her safety. safety and fall precautions are in place. all her needs are met. will continue to monitor.
[2022-05-02 07:51] VITALS: BP 112/61
[2022-05-02] MEDS: LORAZEPAM 1 MG TABLET PO PRN ×2 (08:19→12:22)
[2022-05-02] MEDS: DIVALPROEX 250 MG TABLET.DR PO SCH ×3 (08:51→16:34)
[2022-05-02] MEDS: FERROUS SULFATE 325 MG TABEC PO SCH (08:52)
[2022-05-02] MEDS: OLANZAPINE ZYDIS 5 MG TAB.RAPDIS PO SCH ×2 (08:52→16:34)
--- NOTE | 2022-05-02 14:59 | NUR ---
GPS: Nursing Notes: Thought Disorder: Patient is awake and responding to her name, gets easily irritable when redirected, poor anger management, resistant with nursing care, episodes of coming out of her room shouting "I heard the nurses are saying that I have dementia....That is a lie..", redirected during shift, sundown behavior, unable to formulate a viable plan for self care, episodes of pulling the decorations from the wall, stated "I am cleaning the wall..", continue to monitor for safety, continue with treatment plan.
--- NOTE | 2022-05-02 15:05 | NUR ---
14 days PC hearing done ,held for [place] disabled.
[2022-05-02 16:39] VITALS: BP 106/64
[2022-05-02 19:54] VITALS: BP 110/66
[2022-05-03 08:06] VITALS: BP 128/74
[2022-05-03] MEDS: FERROUS SULFATE 325 MG TABEC PO SCH (08:36)
[2022-05-03] MEDS: DIVALPROEX 250 MG TABLET.DR PO SCH ×3 (08:36→17:10)
[2022-05-03] MEDS: OLANZAPINE ZYDIS 5 MG TAB.RAPDIS PO SCH ×2 (08:37→17:10)
[2022-05-03] MEDS: LORAZEPAM 1 MG TABLET PO PRN (12:30)
--- NOTE | 2022-05-03 15:03 | NUR ---
GPS: Nursing Notes: Thought Disorder: Patient is awake responding to her name, impaired judgment, poor insight, labile, unpredictable behavior, episodes of pulling down the decoration from the wall, stated "I was cleaning the wall..", redirected during shift, unable to formulate a viable plan for self care, gets easily irritable when redirected, unkempt appearance, continue to monitor for safety, continue with treatment plan.
[2022-05-03 16:11] VITALS: BP 110/66
[2022-05-03 20:01] VITALS: BP 132/56
[2022-05-04] MEDS: LORAZEPAM 1 MG TABLET PO PRN (04:42)
--- NOTE | 2022-05-04 06:04 | NUR ---
The patient was up and down during the shift. A few times, she came out of the room and verbalized paranoid delusions about people talking about her to people who were not here. The patient is anxious and was agreeable to take a PRN medication for that. The patient is unable to engage in any meaningful conversation and has poor eye contact. Safety Stratiges are in place. Continuing to monitor for behavior escalation and medication compliance at this time.
[2022-05-04 07:55] VITALS: BP 116/64
[2022-05-04] MEDS ORDERED: DIVALPROEX 250 MG TABLET.DR PO SCH (09:00)
[2022-05-04] MEDS: FERROUS SULFATE 325 MG TABEC PO SCH (09:39)
[2022-05-04] MEDS: DIVALPROEX 500 MG TABLET.DR PO SCH ×2 (09:48→18:43)
[2022-05-04] MEDS: OLANZAPINE ZYDIS 5 MG TAB.RAPDIS PO SCH ×2 (09:48→18:43)
[2022-05-04 15:12] VITALS: BP 118/65
[2022-05-04 20:51] VITALS: BP 107/55
--- NOTE | 2022-05-04 21:35 | NUR ---
GPS: Pt.remains labile,irritable but less episodes. Poor insight to present situation. Confused,disorganized and non-sensical. Safe environment provided. Re-directed prn. Will continue to monitor.
[2022-05-05 07:30] VITALS: BP 129/61
[2022-05-05] MEDS: DIVALPROEX 500 MG TABLET.DR PO SCH ×2 (08:33→16:49)
[2022-05-05] MEDS: FERROUS SULFATE 325 MG TABEC PO SCH (08:33)
[2022-05-05] MEDS: OLANZAPINE ZYDIS 5 MG TAB.RAPDIS PO SCH ×2 (08:33→16:49)
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
--- NOTE | 2022-05-05 12:37 | NUR ---
Nursing - Had been cooperative with the staff, compliant with her routine meds, observed talking to self , redirectable, no agitation noted
[2022-05-05] MEDS: LORAZEPAM 1 MG TABLET PO PRN (13:46)
--- NOTE | 2022-05-05 14:42 | NUR ---
SW Family Contact: Pt stated she does not know who the friend is on her face sheet named Hermila ([phone]). Pt does not have any family contact per pt.
[2022-05-05 16:00] VITALS: BP 103/81
[2022-05-05 20:40] VITALS: BP 105/71
[2022-05-06 07:30] VITALS: BP 114/71
[2022-05-06] MEDS: FERROUS SULFATE 325 MG TABEC PO SCH (08:39)
[2022-05-06] MEDS: OLANZAPINE ZYDIS 5 MG TAB.RAPDIS PO SCH ×2 (08:39→16:45)
[2022-05-06] MEDS: DIVALPROEX 500 MG TABLET.DR PO SCH ×2 (08:39→16:45)
--- NOTE | 2022-05-06 11:28 | NUR ---
Nursing- Continue to be compliant with her routine medications , making her simple needs known . Observed talking to herself. Encouraged to participate in his group activity
[2022-05-06 16:00] VITALS: BP 102/59
[2022-05-06 20:34] VITALS: BP 100/56
[2022-05-06] MEDS: LORAZEPAM 1 MG TABLET PO PRN (21:19)
--- NOTE | 2022-05-07 05:31 | NUR ---
Report received at 1915 patient is stable, took her meds, but stayed in her room during the all shift. No disruptive have been observed during shift. Will continue to monitor patient for safety.
[2022-05-07 08:04] VITALS: BP 119/69
[2022-05-07] MEDS: DIVALPROEX 500 MG TABLET.DR PO SCH ×2 (09:05→17:35)
[2022-05-07] MEDS: OLANZAPINE ZYDIS 5 MG TAB.RAPDIS PO SCH ×2 (09:05→17:36)
[2022-05-07] MEDS: FERROUS SULFATE 325 MG TABEC PO SCH (09:06)
--- NOTE | 2022-05-07 14:39 | NUR ---
Nursing- Attended her morning group therapy ate meals inthe dinning room, meds. compliant Flat guarded affect, follows simple directions. Stayed in bed this pm
[2022-05-07 16:11] VITALS: BP 107/60
[2022-05-07 20:01] VITALS: BP 147/58
[2022-05-07] MEDS: LORAZEPAM 1 MG TABLET PO PRN (20:21)
--- NOTE | 2022-05-08 04:56 | NUR ---
The patient has been up and down during the night. Paranoid delusions have been expressed. The patient is labile with easily, unwarranted irritated and angry mood swings. She has difficulty with active listening and effective expression of her needs and feelings. The patient has high energy and an appetite increase. Safety Stratiges are in place, along with monitoring of the patient for behavior escalation.
[2022-05-08] MEDS: FERROUS SULFATE 325 MG TABEC PO SCH (08:50)
[2022-05-08] MEDS: OLANZAPINE ZYDIS 5 MG TAB.RAPDIS PO SCH ×2 (08:51→16:36)
[2022-05-08] MEDS: DIVALPROEX 500 MG TABLET.DR PO SCH ×2 (08:51→16:36)
[2022-05-08 09:02] VITALS: BP 138/78
[2022-05-08 15:20] VITALS: BP 96/63
--- NOTE | 2022-05-08 16:13 | NUR ---
Nursing- Irritability noted, apologized of her behavior.stayed in bed most of the time, encouraged to attend her group activity,Guarded. compliant with her routine medications. Observed talking to herself and having some discussion with her roommate .
[2022-05-09 05:04] VITALS: BP 99/66
[2022-05-09 07:42] VITALS: BP 112/60
[2022-05-09] MEDS: FERROUS SULFATE 325 MG TABEC PO SCH (08:16)
[2022-05-09] MEDS: DIVALPROEX 500 MG TABLET.DR PO SCH ×2 (08:16→16:35)
[2022-05-09] MEDS: OLANZAPINE ZYDIS 5 MG TAB.RAPDIS PO SCH ×2 (08:17→16:35)
--- NOTE | 2022-05-09 09:50 | NUR ---
SW Family Contact: Pt verbalized she does not recall who the family member is on her face sheet named Hermila ([phone]). Per face sheet, it is her friend. Pt is agreeable with her discharge plan to a facility upon discharge. Pt appeared appropriate and cooperative.
--- NOTE | 2022-05-09 15:27 | NUR ---
GPS: Nursing Notes: Thought Disorder: Patient is awake and responding to her name, impaired judgment, poor insight, isolative and withdrawn in her room, need a lot of prompting to come to therapeutic groups, present, but no participation, in and out of therapeutic groups, gets easily irritable when redirected, believes that someone is stealing from her, unable to formulate a viable plan for self care, continue with treatment plan.
[2022-05-09 16:00] VITALS: BP 95/62
[2022-05-09 20:14] VITALS: BP 101/57
[2022-05-10 07:55] VITALS: BP 110/71
[2022-05-10] MEDS: OLANZAPINE ZYDIS 5 MG TAB.RAPDIS PO SCH (08:34)
[2022-05-10] MEDS: DIVALPROEX 500 MG TABLET.DR PO SCH (08:34)
[2022-05-10] MEDS: FERROUS SULFATE 325 MG TABEC PO SCH (08:35)
--- NOTE | 2022-05-10 08:55 | NUR ---
FRANCK Discharge Note: Pt will be discharged to [facility] [address] [place] [address] ([phone]) via Ambulance transportation at 11AM. FRANCK spoke with admin coordinator, DALJIT at the facility and apartment maintenanceCalvin who state they are ready to accept the patient today. Pt is aware and agreeable with discharge plan. Pt does not have any family contact at this time. Pt is alert and oriented x2, is unable to plan for self-care at this time. However, pt is willing to accept care at SNF. Pt denies any suicidal or homicidal ideation. Pt will follow-up at the facility with Psychiatrist, Dr. Jerry ([phone]) and Synthetic Chemist, Dr. Holcomb. Pt presents with calm mood and congruent affect. PHARMACY: [facility] ([phone]) [address] [place] [address].
--- NOTE | 2022-05-10 12:15 | NUR ---
GPS: Nursing Notes: Discharge Notes: Patient is awake and responding to her name, cooperative with nursing care, compliant with her medications, following staff directions, denies SI/HI, denies AH/VH, denies discomfort or pain, denies SOB. Patient is discharge to [facility] at [address] [place] [id number] . Patient took all her belongings and valuables, report given to facility's admitting nurse - AURORA Sparks supervisor ornamental ironworking. Transported to facility via ambulance. Patient will follow-up at the facility with Psychiatrist, Dr. Jerry ([phone]) and Fireworks Assembly Supervisor, Dr. Holcomb.
== END 2022-05-10 12:15 | DRG 885 ==
LOC: ER 23:29 → GPS 04-27 02:45
PROVIDERS: ADMIT Psychiatry & Neurology Psychiatry; ATTEND Nurse Practitioner Family
DX: F25.0 Schizoaffective disorder, bipolar type (principal); E44.1 Mild protein-calorie malnutrition; D64.9 Anemia, unspecified; M54.12 Radiculopathy, cervical region; F43.10 Post-traumatic stress disorder, unspecified; F29 Unspecified psychosis not due to a substance or known physiological condition; E88.09 Other disorders of plasma-protein metabolism, not elsewhere classified; Z68.23 Body mass index [BMI] 23.0-23.9, adult
CPT/HCPCS: 36415; 80164; 83550; 83735; 84443; 85025; 93005; J2358; J3490